=== PATIENT | male | born 1985 | race Caucasian/White ===

== ENCOUNTER 2018-07-04 18:18 | Emergency (ER) | payer BC ==
--- NOTE | 2018-07-04 18:52 | UC ---
Back Pain HPI - HPI Summary HPI Summary: Patient is complaining of left low back pain for 1.5 weeks he noted a spasm when he went to step out of his jeep at the onset. He states that after that it did improve for a bit but is now gotten much worse. He notes that he has pain that shoots into his left leg area did he's been self treating with heat and ibuprofen. He last took ibuprofen 800 mg at noon today which happened to be the only dose he took today. He denies any fever, history of injury or weakness to his extremities, bowel or bladder dysfunction as well as saddle anesthesia. Patient reports having history of back spasms in the past. I did question him about his elevated blood pressure at time of triage plus his elevated heart rate. He states that he has a history of hypertension; however, since relocating to [place]-he has not found a new primary care provider thus has been without his blood pressure medication for about 2 months. As far as his elevated heart rate, he states that if he thinks about it he can feel his increased heart rate. He attributes his increased heart rate to having consumed a monster drink as well as to his espresso drinks prior to arrival area he has no associated chest pain or shortness of breath. - History of Current Complaint Chief Complaint: UCBackPain Stated Complaint: LOWER BACK COMPLAINT Time Seen by Provider: 07/04/18 18:35 Hx Obtained From: Patient Pain Intensity: 10 Character: Spasmodic Aggravating Factor(s): Movement - Worsens patient's back spasm Associated Signs And Symptoms: Positive: Numbness - LLE. Negative: Fever, Weakness, Abdominal Pain, Bladder Incontinence, Bowel Incontinence - Risk Factors AAA Risk Factors: Negative TAD Risk Factors: Negative Cauda Equina Risk Factors: Negative Epidural Abscess Risk Factors: Negative - Allergies/Home Medications Allergies/Adverse Reactions: Allergies Allergy/AdvReac Type Severity Reaction Status Date / Time No Known Allergies Allergy Verified 07/04/18 18:37 Home Medications: Home Medications Ibuprofen TAB* [Motrin TAB* 800 MG] 800 mg PO Q6H PRN 07/04/18 [History Confirmed 07/04/18] PMH/Surg Hx/FS Hx/Imm Hx - Additional Past Medical History Additional PMH: Back spasms Cardiovascular History: Hypertension - Surgical History Surgical History: None - Family History Known Family History: Positive: Hypertension - Social History Occupation: Employed Full-time Lives: With Family Alcohol Use: None Substance Use Type: None Smoking Status (MU): Never Smoked Tobacco - Immunization History Vaccination Up to Date: Yes Review of Systems Constitutional: Negative Skin: Negative Eyes: Negative ENT: Negative Respiratory: Negative Cardiovascular: Palpitations Gastrointestinal: Negative Genitourinary: Negative Motor: Negative Neurovascular: Negative Musculoskeletal: Other: - Left low back pain Neurological: Negative Psychological: Negative Is Patient Immunocompromised?: No All Other Systems Reviewed And Are Negative: Yes Physical Exam Triage Information Reviewed: Yes Appearance: Well-Appearing Vital Signs: Initial Vital Signs Temp 98.3 F 07/04/18 18:34 Pulse 112 07/04/18 18:34 Resp 16 07/04/18 18:34 BP 152/100 07/04/18 18:34 Pulse Ox 99 07/04/18 18:34 Vital Signs Reviewed: Yes Eyes: Positive: Conjunctiva Clear ENT: Positive: Pharynx normal, TMs normal. Negative: Nasal congestion, Nasal drainage Neck: Positive: Supple, Nontender, No Lymphadenopathy, Other: - C-spine is nontender. Respiratory: Positive: Lungs clear, Normal breath sounds Cardiovascular: Positive: No Murmur, Tachycardia - 124 Abdomen Description: Positive: Nontender, No Organomegaly, Soft. Negative: Distended, Guarding, Pulsatile Mass Bowel Sounds: Positive: Present Musculoskeletal: Positive: Other: - Inspection of the cervical, thoracic and lumbar spine shows no gross deformity swelling or discoloration. Spinous processes are nontender palpation. The left paraspinal muscles in the lumbar region are exquisitely tender to palpation. Range of motion at the waist is restricted due to pain. He has negative straight leg raise bilaterally. 2+ reflexes 4 and 5 out of 5 strength 4. Superficial sensation to touch is intact 4. He has no saddle anesthesia. Neurological: Positive: Alert Psychological: Positive: Age Appropriate Behavior Skin Exam: Normal Diagnostics - EKG Cardiac Rate: Tachycardia Cardiac Rhythm: Sinus: Normal - rate 124 Ectopy: None ST Segment: Non-Specific - T wave inversion III Re-Evaluation - Re-Evaluation First Eval Re-Evaluation Time: 19:48 Change: Improved - Repeat HR at rest is 108. Patient able to bend over to stand and ambulate around the room without any noticeable discomfort. He also reports that he is feeling much improved. Back Pain Course/Dx - Course Course Of Treatment: Repeat BP after pain control is 155/117. Patient has known history of hypertension and has been without his lisinopril for about 2 months after relocating his place of residence to [place]. He states that he had been on lisinopril but cannot recall the dose. It is not in his best interest to leave the blood pressure untreated thus I will restart him on lisinopril at a dose of 10 mg. Patient's tachycardia is improving during his stay. Again, he admits to having consumed a large monster energy drink as well as to espressos prior to arrival after which he noted having an increase in his heart rate. His heart rate is slowly improving during his stay and upon last checked by myself after resting with pain relief she was down to 108. An EKG showed no rapid reentry phenomenon and no lethal arrhythmia. It was consistent with sinus tachycardia. Spoken to the patient about discontinuing his energy drinks as well as decreasing his caffeinated beverages. He is agreeable to both citing that normally he would only drink about one coffee a day. I have no concern for cauda equina, acute abdomen or infection contributing to the patient's back pain. Patient agrees to follow-up with a primary care in the [place] as soon as possible. He is going to follow-up with [facility] where his girlfriend is a patient. He is to call first thing in the a.m. - Differential Dx/Diagnosis Provider Diagnoses: Acute low back pain with lumbar radiculopathy. Hypertension. Sinus tachycardia. Discharge - Sign-Out/Discharge Documenting (check all that apply): Patient Departure All imaging exams completed and their final reports reviewed: No Studies - Discharge Plan Condition: Improved Disposition: HOME Prescriptions: Cyclobenzaprine TAB* [Flexeril 10 MG TAB*] 10 mg PO TID #10 tab Lisinopril 10 mg PO DAILY #30 tablet methylPREDNISolone [Medrol Dosepak 4 MG*] 0 mg PO .SEE MARKIE INSTRUCTION #1 tab Patient Education Materials: Acute Low Back Pain (ED), Lumbar Radiculopathy (ED ), Hypertension (ED), Tachycardia (ED) Referrals: No Primary Care Phys,NOPCP [Primary Care Provider] - Additional Instructions: CALL THE [facility] IN THE AM FOR NEXT AVAILABLE APPOINTMENT. STOP THE IBUPROFEN. AVOID CAFFEINE USE. GO TO THE ER FOR ANY WORSENING IN YOUR CONDITION. - Billing Disposition and Condition Condition: IMPROVED Disposition: Home
[2018-07-04] MEDS ORDERED: Cyclobenzaprine TAB* 10 MG PO ONE (18:57)
[2018-07-04] MEDS ORDERED: Ketorolac INJ* 30 MG/ML 1 ML VIAL IM ONE (18:57)
[2018-07-04 19:56] VITALS: BP 155/117
== END 2018-07-04 20:18 | disposition home or self-care (01) ==
LOC: UCCORT 18:18
DX: M54.16 Radiculopathy, lumbar region (principal); I10 Essential (primary) hypertension; R00.0 Tachycardia, unspecified
CPT/HCPCS: 93005; 96372; 99212; A9270-GY; G0463; J1885